=== PATIENT | female | born 1935 | race Caucasian/White ===

== ENCOUNTER → 2019-01-18 | Outpatient (CLI) | payer MEDICARE ==
[~2019-01-18] MED LIST: ALPR1TAB7 PO; HYDR-4064 PO; LOSA1TAB42 PO; PRAV20TA4 PO; RANI150C4 PO; TOPI100T37 PO; VITAMIN D PO
== END | disposition home or self-care (01) ==
LOC: RAH 12:21
PROVIDERS: ATTEND Urology
DX: N20.0 Calculus of kidney (principal); M47.899 Other spondylosis, site unspecified; K57.90 Diverticulosis of intestine, part unspecified, without perforation or abscess without bleeding
CPT/HCPCS: 74176

== ENCOUNTER → 2025-01-02 | Outpatient (CLI) | payer OTHER ==
[~2025-01-02] MED LIST changes: +IOHEXOL-350 50ML VIAL IV ONE; -PRAV20TA4 PO; +PRAV20TA59 PO; +TOPI-258 PO; -TOPI100T37 PO
--- NOTE | 2025-01-03 08:38 | HMCIMG ---
EXAM: COMPUTED TOMOGRAPHY OF THE BRAIN WITH AND WITHOUT INTRAVENOUS CONTRAST Technique: Axial computed tomography of the brain was performed without and with administration of an intravenous iodinated contrast agent. Multiplanar reconstructions in the sagittal and coronal planes were obtained. Image quality is diagnostic. Radiation dose reduction strategies were applied using the [id number]-pup-yv-reasonably-achievable principle, including automatic exposure control and patient size???adapted parameters. Clinical Information: Migraine without aura, not intractable, with status migrainosus (history). Comparison: No prior examinations are available. Findings: No acute intracranial hemorrhage is identified. Finley???white matter differentiation is preserved without findings of acute territorial cortical infarction on computed tomography. A small peripheral focus of encephalomalacia is present in the right frontal lobe. Scattered hypodensities in the bilateral periventricular and subcortical white matter most likely represent chronic small vessel ischemic changes. Prominent cortical sulci, basal cisterns, sylvian fissures, and ventricles are compatible with age-related parenchymal volume loss. No mass effect or midline shift is identified. Ventricular size and configuration are within expected limits without hydrocephalus. The brainstem and cerebellum are unremarkable. The pituitary gland, pineal region, and optic chiasm are unremarkable on this examination. Cerebellopontine angles are clear. Internal auditory canals are unremarkable. No abnormal parenchymal or meningeal enhancement is identified on the post-contrast images. Visualized paranasal sinuses are clear. Calvarium and skull base demonstrate no acute osseous abnormality. Impression: * No acute intracranial abnormality identified: no acute hemorrhage, mass effect, midline shift, hydrocephalus, or computed-tomography evidence of acute territorial infarction. * Small peripheral focus of right frontal lobe encephalomalacia, compatible with sequela of a remote insult. * Chronic microvascular ischemic changes in the cerebral white matter with age-related parenchymal volume loss. * No abnormal intracranial enhancement on the post-contrast images. /[place]
== END | disposition home or self-care (01) ==
LOC: RAH 07:46
PROVIDERS: ATTEND Family Medicine
DX: I67.82 Cerebral ischemia (principal); G43.001 Migraine without aura, not intractable, with status migrainosus; G93.89 Other specified disorders of brain
CPT/HCPCS: 70470; Q9967